=== PATIENT | female | born 1955 | race Caucasian/White ===

== ENCOUNTER → 2024-12-29 | Outpatient (CLI) | payer MEDICARE, OTHER, SELFPAY ==
--- NOTE | 2024-12-29 13:12 | STRESSREP_ITS ---
Stress Test Report Exercise myocardial perfusion stress test. 69-year-old lady with a history of chest pain Stress protocol: Resting EKG demonstrates normal sinus rhythm with a rate of 61 bpm resting blood pressure is 142/94 mmHg. The patient exercised according to the regular Braulio protocol for a total duration of 6 minutes and 38 seconds attaining a maximum heart rate of 129 bpm which was 84% of maximum predicted heart rate; the maximum workload was 8.9 metabolic equivalents. At rest there were no ST or T wave changes noted to suggest ischemia and at peak exercise upsloping ST changes only were noted which did not meet the criteria for ischemia. No clinical angina was noted the test was terminated due to the target heart rate being achieved/fatig ue. The peak blood pressure was 164/80 mmHg. Rate-pressure product was 19,000. Myocardial perfusion protocol. 13.4 mCi of technetium 99m sestamibi was injected at rest. The patient exercised according to regular Braulio protocol for total duration of 6 minutes and 38 seconds and at peak exercise 45 mCi of technetium 99m sestamibi was injected stress images were obtained stress and rest images were reconstructed in comparing the short axis vertical long and horizontal long axis. Gated images were also obtained. Perfusion SPECT analysis: Review of the stress images demonstrate normal uptake of tracer noted in all areas of the myocardium. The resting images similarly demonstrate normal uptake of tracer noted in all areas of the myocardium. No areas of reversibility are noted to suggest ischemia no previous infarct was noted. Gated SPECT analysis: The gated ejection fraction is 72%. Conclusion: Normal exercise myocardial perfusion stress test at a moderate workload Preserved ejection fraction.
== END | disposition home or self-care (01) ==
PROVIDERS: PCP Family Medicine; Referring Provider Physician Assistant; Visit Provider Physician Assistant
DX: I25.10 Atherosclerotic heart disease of native coronary artery without angina pectoris (principal); R06.09 Other forms of dyspnea
CPT/HCPCS: 78452; 93017; A9500; A4216